=== PATIENT | female | born 1970 | race Caucasian/White ===

== ENCOUNTER 2025-02-08 11:37 | Emergency (ER) | payer SELFPAY ==
[~2025-02-08] VITALS: Ht 165.1 cm; Wt 56.8 kg
[2025-02-08 12:12] VITALS: BP 116/74; PULSE 67; RESP 15; TEMP 98.1; O2SAT 99
[2025-02-08 12:25] LABS: COVID AG,FIA SOURCE NASAL SWAB
[2025-02-08 12:35] LABS: PLATELET COUNT (AUTO) 266 K/uL (150-450); RED BLOOD CELL COUNT(AUTO) 3.82 MIL/uL (4.00-5.20); RED CELL DISTRIBUTION WIDTH 13.1 % (11.5-14.5); WHITE BLOOD COUNT (AUTO) 9.0 K/uL (4.5-11.0)
[2025-02-08 12:50] LABS: CALCIUM, TOTAL 8.8 mg/dL (8.8-10.5); CREATININE 0.60 mg/dL (0.60-1.30); GLOMERULAR FILTR. RATE CALC > 60 mL/min (>60); GLUCOSE,RANDOM 101 mg/dL (70-110); SODIUM SERUM 140 mmol/L (136-145); UREA NITROGEN, BLOOD 7 mg/dL (7-18)
[2025-02-08 13:12] LABS: SARS-COV2 (COVID) ANTIGEN,FIA Negative (Negative)
== END 2025-02-08 13:40 | disposition home or self-care (01) ==
LOC: EMS 11:50
DX: F69 Unspecified disorder of adult personality and behavior (principal); R51.9 Headache, unspecified; F17.210 Nicotine dependence, cigarettes, uncomplicated; Z59.00 Homelessness unspecified; Z79.899 Other long term (current) drug therapy; Z20.822 Contact with and (suspected) exposure to COVID-19
CPT/HCPCS: 99285; 87426; 80048; 85025; 36415; G0480